=== PATIENT | male | born 1960 | race Caucasian/White ===

== ENCOUNTER 2023-06-04 14:59 | Emergency (ER) | payer BC, SELFPAY ==
--- NOTE | ~2023-06-04 | XR_ITS ---
XR foot LT min 3V DATE: 06/04/2023 15:22 INDICATION: Volleyball injury. Pain of medial half of foot. TECHNIQUE: 4 views COMPARISON: None FINDINGS: Very prominent plantar calcaneal enthesopathy without erosive change or periostitis. 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 Osteoarthritic spurring of base of the proximal phalanx of the third digit. Mild osteoarthritis at the first metatarsophalangeal joint. No recent fracture or dislocation, periosteal reaction or bone destruction is detected. 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
[2023-06-04 15:11] VITALS: BP 169/91; PULSE 83; RESP 18; TEMP 36.4; O2SAT 97
[2023-06-04 15:17] VITALS: BP 169/91; PULSE 83; RESP 18; TEMP 36.4; O2SAT 97
--- NOTE | 2023-06-04 15:36 | ED.LOWEXIN ---
HPI - Extremity Injury (Lower) General Chief Complaint: Extremity Injury, Lower Stated Complaint: Lt Foot Pain Time Seen by Provider: 06/04/23 15:36 Source: patient Mode of arrival: ambulatory Limitations: no limitations History of Present Illness HPI Narrative: 62-year-old male presented for complaint of left great toe pain after injury yesterday. States he was playing volleyball in a pool, when he struck the foot/toe on the edge of the pool that descends to the deep end. Endorses swelling and pain to the toe started last night. Reports decreased ROM due to pain. Has taken Tylenol for pain. Related Data Home Medications Medication Instructions Recorded Confirmed aspirin 81 mg chewable tablet 81 mg PO DAILY 06/04/23 06/04/23 [facility] 06/04/23 06/04/23 Precision Waqas Strips) famotidine 40 mg tablet 40 mg PO DAILY 06/04/23 06/04/23 flash glucose sensor ([facility] 06/04/23 06/04/23 Anu 14 Day Sensor kit) insulin glargine U-300 conc 300 25 unit subcut DAILY 06/04/23 06/04/23 unit/mL (3 mL) subcutaneous pen (Toujeo Max U-300 SoloStar) insulin lispro 100 unit/mL 20 unit subcut TID 06/04/23 06/04/23 subcutaneous pen (Humalog KwikPen (U-100) Insulin) metoprolol succinate 50 mg 50 mg PO BID 06/04/23 06/04/23 tablet,extended release 24 hr (Toprol XL) pen needle, diabetic 32 gauge x 06/04/23 06/04/23 5/32 (BD Indy 2nd Gen Pen Needle) testosterone cypionate 200 mg/mL 200 mg IM WEEKLY 06/04/23 06/04/23 intramuscular oil Allergies Allergy/AdvReac Type Severity Reaction Status Date / Time No Known Allergies Allergy Verified 06/04/23 15:10 Review of Systems Review of Systems: CONSTITUTIONAL: Denies body aches, fever, chills EYES: Denies visual changes ENT: Denies rhinorrhea, congestion CARDIOVASCULAR: Denies chest pain, palpitations, or edema. RESPIRATORY: Denies cough or dyspnea. GASTROINTESTINAL: Denies abdominal pain, nausea, vomiting, or diarrhea. SKIN: Denies rash, itching, or wounds. MUSCULOSKELETAL: per HPI NEUROLOGIC: Denies headache, numbness, tingling, or weakness. All systems reviewed & are unremarkable except as noted in HPI and below PMFSH Past Medical History Medical History (Updated 06/04/23 @ 15:58 by Nel Panchal APRN) Atrial fibrillation CAD (coronary artery disease) Diabetes Surgical History Surgical History (Updated 06/04/23 @ 15:55 by Nel Panchal APRN) Aortic valve replaced H/O cardiac radiofrequency ablation History of heart bypass surgery Comments At time of signature, I have reviewed and agree with nursing past medical, surgical, social and family history unless otherwise noted. Please see nursing chart for further information. There is no relevant family history pertinent to the presenting complaint Exam Narrative: GENERAL: Well-appearing, well-nourished, and in no acute distress. HEAD: Normocephalic, atraumatic. EYES: PERRLA, conjunctivae clear CHEST: Speaks in full sentences. No respiratory distress. HEART: Regular rate and rhythm. Normal and equal peripheral pulses. EXTREMITIES: Left foot has normal strength and sensation, Limited range of motion at left 1st MTP joint due to pain with movement. Moderate swelling at MTP with erythema medially, tenderness with minimal palpation. No ecchymosis. No open wounds, or obvious deformity; alignment normal, pulse palpable and equal bilaterally, skin warm, dry, pink. Capillary refill less than 3 seconds. SKIN: Warm, dry, no rash. NEURO: Alert and oriented x3. PSYCH: Normal mood and affect Course Course Emergency Course: Patient is aware of diagnosis, understands and agrees to treatment plan. Anticipatory guidance given. Patient agrees to follow-up as directed and is aware of reasons to seek care at the emergency department. Portions of this record may have been created with voice recognition software Level of Care: Express Care Visit Vital Signs Vital s
== END 2023-06-04 15:52 | disposition home or self-care (01) ==
PROVIDERS: Emergency Provider Nurse Practitioner Family; PCP Physician Assistant
DX: M79.675 Pain in left toe(s) (principal); Z79.82 Long term (current) use of aspirin; I48.91 Unspecified atrial fibrillation; E11.9 Type 2 diabetes mellitus without complications; Z79.84 Long term (current) use of oral hypoglycemic drugs; I25.10 Atherosclerotic heart disease of native coronary artery without angina pectoris; Z95.2 Presence of prosthetic heart valve; Z95.1 Presence of aortocoronary bypass graft
CPT/HCPCS: 73630; 99203; G0463